=== PATIENT | female | born 1950 | race Caucasian/White ===

== ENCOUNTER 2022-11-17 08:15 | Outpatient (OUT) | payer MEDICARE, OTHER, SELFPAY ==
[2022-11-17 08:31] LABS: Basophils Percent Auto 0.8 % (0.2-2.0); Eosinophils Absolute Auto 0.1 10^3/uL (0.0-0.7); Eosinophils Percent Auto 2.5 % (0.9-7.0); Hematocrit 43.2 % (36.0-48.0); Hemoglobin 14.3 g/dL (12.0-16.0); Immature Granulocytes Abs Auto 0.01 10^3/uL (0.00-0.03); Immature Granulocytes Pct Auto 0.2 % (0.0-0.5); Lymphocytes Absolute Auto 1.4 10^3/uL (1.2-3.8); Lymphocytes Percent Auto 29.4 % (20.5-60.0); Mean Corpuscular HGB Conc 33.1 g/dL (29.9-35.2); Mean Corpuscular Hemoglobin 30.5 pg (26.7-34.0); Mean Corpuscular Volume 92.1 fL (81.0-99.0); Mean Platelet Volume 8.5 fL (9.5-13.5); Monocytes Absolute Auto 0.4 10^3/uL (0.3-0.8); Neutrophils Absolute Auto 2.8 10^3/uL (1.4-6.5); Neutrophils Percent Auto 59.1 % (43.0-75.0); Platelet Count 270 10^3/uL (150-450); Red Blood Count 4.69 10^6/uL (4.20-5.40); Red Cell Distribution Width 13.7 % (11.0-15.0); White Blood Count 4.7 10^3/uL (4.0-11.0)
--- NOTE | 2022-11-17 08:32 | MM_ITS ---
Patient: LUH FARLEY Exam Date: 11/17/2022 : 1950 Gender:F Ordering : DR Mitch Hernandez . Admission #: [id number] Family : Order #: [id number] CLICK HERE TO VIEW EXAM RADIOLOGY REPORT PROCEDURE: MM TOMOSYNTHESIS SCREENING BI COMPARISON: MG MAMM SCREEN 3D KEVIN CAD, 09/05/2021. MG MAMM SCREEN 3D KEVIN CAD, 06/07/2020. MG MAMM SCREEN KEVIN W CAD, 02/03/2019. MG MAMM SCREEN KEVIN W CAD, 01/01/2017. INDICATIONS: Screening Calculator Name NCI Breast Cancer Risk Assessment Tool 5 Year Breast Cancer Risk 4.00% Lifetime Breast Cancer Risk 9.00% Personal Breast Cancer No Personal Ovarian Cancer No Treatments None Family Cancers Mother with breast cancer at age 72; Grandmother-maternal with breast cancer at age 80. LOCATION: [facility] BREAST COMPOSITION: Heterogeneously dense,which may obscure small masses. FINDINGS: DIAGNOSTIC CATEGORY 2--BENIGN FINDING: RIGHT BREAST: No significant suspicious finding. Scattered benign-appearing calcifications are present. Scattered benign-appearing lymph nodes are present. No significant change has occurred. LEFT BREAST: No significant suspicious finding. Scattered benign-appearing calcifications are present. No significant change has occurred. RECOMMENDATIONS: ROUTINE MAMMOGRAM AND CLINICAL EVALUATION IN 12 MONTHS. PLEASE NOTE: A NORMAL MAMMOGRAM DOES NOT EXCLUDE THE POSSIBILITY OF BREAST CANCER. A CLINICALLY SUSPICIOUS PALPABLE LUMP SHOULD BE BIOPSIED. Dictated by: Felix Mahoney M.D. on 11/17/2022 at 12:46 Approved by: Felix Mahoney M.D. on 11/17/2022 at 12:48
[2022-11-17 09:47] LABS: Alanine Aminotransferase 23 U/L (14-59); Albumin Globulin Ratio 1.1; Albumin Level 3.7 g/dL (3.4-5.0); Alkaline Phosphatase 92 U/L (46-116); Anion Gap 9.7; Aspartate Amino Transferase 20 U/L (15-37); BUN Creatinine Ratio 28.2; Bilirubin Direct 0.1 mg/dL (0.0-0.2); Bilirubin Total 0.7 mg/dL (0.2-1.0); Carbon Dioxide 31.1 mmol/L (21.0-32.0); Chloride 102 mmol/L (98-107); Cholesterol 251 mg/dL (<=200); Estimated GFR (African America >60 (>=60); Estimated GFR (Non-African Ame >60 (>=60); Globulin 3.4 g/dL; Glucose 99 mg/dL (74-106); HDL Cholesterol 126 mg/dL (40-60); Potassium 3.8 mmol/L (3.5-5.1); Sodium 139 mmol/L (136-145); Total Protein 7.1 g/dL (6.4-8.2); Triglycerides 60 mg/dL (<=150)
== END 2022-11-17 08:16 | disposition home or self-care (01) ==
LOC: MAMMO 08:16
PROVIDERS: PCP Family Medicine; Visit Provider Family Medicine
DX: Z12.31 Encounter for screening mammogram for malignant neoplasm of breast (principal); Z80.3 Family history of malignant neoplasm of breast; I10 Essential (primary) hypertension; M85.80 Other specified disorders of bone density and structure, unspecified site; Z78.0 Asymptomatic menopausal state; Z79.899 Other long term (current) drug therapy; E78.5 Hyperlipidemia, unspecified
CPT/HCPCS: 36415; 77063; 77067; 80048; 80061; 80076; 82306; 85025